=== PATIENT | female | born 1990 | race Caucasian/White ===

== ENCOUNTER 2021-09-20 08:35 | Inpatient (IN) | payer OTHER ==
[2021-09-20] MEDS ORDERED: ELECTROLYTE-148 SOLN 500 ML IV ONE (09:00)
[2021-09-20 09:42] VITALS: BMI 29.9
[2021-09-20 10:15] LABS: BASO % 0.2 % (0-2.0); EOS % 1.1 % (0-4.5); HEMATOCRIT 33.9 % (32.4-45.2); HEMOGLOBIN 11.1 GM/dL (10.7-15.3); LYMPH % 16.9 % (8-40); MCH 27.3 pg (25.7-33.7); MCHC 32.6 g/dl (32.0-36.0); MEAN CELL VOLUME 83.7 fl (80-96); MEAN PLT VOLUME 8.3 fl (7.5-11.1); MONO % 9.8 % (3.8-10.2); PLATELET COUNT 226 10^3/uL (134-434); RBC 4.06 M/mm3 (3.60-5.2); RDW 15.2 % (11.6-15.6); WHITE BLOOD COUNT 8.6 K/mm3 (4.0-10.0)
[2021-09-20 10:24] LABS: INR 0.99 (0.83-1.09); PROTHROMBIN TIME (PATIENT) 11.4 SEC (9.7-13.0)
[2021-09-20 10:26] LABS: ACTIVATED PTT 25.8 SECONDS (25.2-36.5)
[2021-09-20] MEDS ORDERED: FENTANYL/BUPIVACAINE/NS/PF - PCEA - 50 ML DISP.SYRIN EP ONE (10:32)
[2021-09-20] MEDS ORDERED: BUPIVACAINE HCL/PF 0.25% (2.5MG/ML) 10 ML VIAL ONE (10:36)
[2021-09-20 10:40] LABS: CALCIUM 8.5 mg/dL (8.5-10.1)
[2021-09-20 10:41] LABS: BLOOD UREA NITROGEN 11.4 mg/dL (7-18)
[2021-09-20 10:44] LABS: CREATININE 0.7 mg/dL (0.55-1.3)
[2021-09-20] MEDS ORDERED: NALOXONE HCL 0.4 MG/ML VIAL IVPUSH PRN (11:03)
[2021-09-20] MEDS ORDERED: FENTANYL/BUPIVACAINE/NS/PF - PCEA - 50 ML DISP.SYRIN EP SCH (11:15)
[2021-09-20] MEDS ORDERED: ELECTROLYTE-148 SOLN 1,000 ML IV SCH (11:30)
[2021-09-20] MEDS ORDERED: OXYTOCIN 20 UNITS in 0.9% NS 20 UNIT/1,000 ML INFUS.BAG IV ONE ×2 (12:23→15:02)
[2021-09-20] MEDS ORDERED: BENZOCAINE 28 GM HEMORRHOIDAL OINTMENT TP PRN (13:20)
[2021-09-20] MEDS ORDERED: oxyCODONE HCL 5 MG TABLET PO PRN (13:20)
[2021-09-20] MEDS ORDERED: ACETAMINOPHEN 325 MG TABLET (FP) PO PRN (13:20)
[2021-09-20] MEDS ORDERED: BENZOCAINE 20% 57 GM BOTTLE TP PRN (13:20)
[2021-09-20] MEDS ORDERED: METHYLERGONOVINE MALEATE 0.2 MG/1 ML AMP IM PRN (13:20)
[2021-09-20] MEDS ORDERED: WITCH HAZEL 50% (TUCKS) 40 PAD/JAR PAD TP PRN (13:20)
[2021-09-20] MEDS ORDERED: BISACODYL 10 MG SUPP.RECT RC PRN (13:20)
[2021-09-20] MEDS ORDERED: OXYTOCIN 20 UNITS in 0.9% NS 20 UNIT/1,000 ML INFUS.BAG IV SCH (13:30)
[2021-09-20] MEDS: FERROUS SO4 325 MG TABLET (FP) PO SCH (17:24)
[2021-09-20] MEDS ORDERED: ONDANSETRON 4 MG/2 ML VIAL IVPB PRN (20:29)
[2021-09-20] MEDS: IBUPROFEN 600 MG TABLET (FP) PO PRN (23:26)
[2021-09-21 07:16] LABS: BASO % 0.2 % (0-2.0); EOS % 1.7 % (0-4.5); LYMPH % 19.4 % (8-40); MCH 27.1 pg (25.7-33.7); MCHC 32.2 g/dl (32.0-36.0); MEAN PLT VOLUME 8.8 fl (7.5-11.1); MONO % 8.7 % (3.8-10.2); PLATELET COUNT 201 10^3/uL (134-434); RBC 3.69 M/mm3 (3.60-5.2); RDW 15.5 % (11.6-15.6); WHITE BLOOD COUNT 9.8 K/mm3 (4.0-10.0)
[2021-09-21] MEDS: IBUPROFEN 600 MG TABLET (FP) PO PRN (08:11)
[2021-09-21] MEDS: FERROUS SO4 325 MG TABLET (FP) PO SCH ×2 (08:11→17:02)
[2021-09-21] MEDS: PRENATAL VITAMINS W/ FOLIC ACID TABLET (FP) PO SCH (09:26)
[2021-09-21] MEDS ORDERED: DIPHTH,PERTUSS(ACELL),TET 0.5 ML DISP.SYRIN IM ONE (10:00)
[2021-09-21 12:42] LABS: POC NITRAZINE POS
[2021-09-21] MEDS ORDERED: SENNOSIDES/DOCUSATE COMBO (SENNA PLUS) TABLET (UD) PO PRN (22:00)
[2021-09-22] MEDS: PRENATAL VITAMINS W/ FOLIC ACID TABLET (FP) PO SCH (09:05)
[2021-09-22] MEDS: FERROUS SO4 325 MG TABLET (FP) PO SCH (09:05)
[2021-09-22] MEDS: IBUPROFEN 600 MG TABLET (FP) PO PRN (09:06)
[2021-09-22 09:52] VITALS: BP 128/82; PULSE 83; TEMP 98.8
== END 2021-09-22 13:15 | disposition home or self-care (01) | DRG 560 ==
LOC: JLDR 08:35 → J3W 15:15
PROVIDERS: ADMIT Obstetrics & Gynecology; ATTEND Obstetrics & Gynecology
PROC: 10E0XZZ Delivery of Products of Conception, External Approach (ICD-10-PCS; principal; 2021-09-20)
DX: O42.02 Full-term premature rupture of membranes, onset of labor within 24 hours of rupture (principal); O99.214 Obesity complicating childbirth; E66.9 Obesity, unspecified; Z3A.39 39 weeks gestation of pregnancy; Z37.0 Single live birth
CPT/HCPCS: 36415; 59409; 80048; 83986-QW; 85025; 85610; 85730; 86780; 86850; 86900; 86901; 90715; C9803; U0003; U0005